=== PATIENT | female | born 1980 | race Caucasian/White ===

== ENCOUNTER 2023-01-08 07:20 | Day surgery (SDC) | payer OTHER ==
[~2023-01-08] VITALS: Ht 177.8 cm; Wt 133.0 kg
[2023-01-08 08:58] VITALS: BP 140/94; PULSE 82; TEMP 98.5
--- NOTE | 2023-01-08 09:03 | NUR ---
0736 PT AMBULATORY TO BAY 4 WITH STEADY GAIT, BREATHING EVEN AND UNLABORED. PT IS ALERT AND ORIENTED, ACCOMPANIED BY HER . CONSENTS REVIEWED AND SIGNED BY PT. IV ESTABLISHED. LR INFUSING VIA GRAVITY AT [facility]. CALL LIGHT IN REACH. WARM BLANKET PROVIDED.
[2023-01-08 11:02] VITALS: BP 129/63; PULSE 90; TEMP 97.6
--- NOTE | 2023-01-08 11:02 | NUR ---
PATIENT RETURNED TO BAY 4 VIA CART, DROWSY BUT ORIENTED X3. DENIES PAIN, NAUSEA AND SHORTNESS OF BREATH. BREATHING REGULAR AND UNLABORED ON ROOM AIR. SKIN WARM AND DRY. HANDOFF COMPLETED IN ROOM BY ROBY AMOR RN AND SCOOBY HERNANDEZ CRNA. GAUZE AND MEDIPORE DRESSING PRESENT TO RIGHT CHEST (CLEAN, DRY AND INTACT). BANDAID INTACT TO RIGHT SIDE OF NECK (CLEAN AND DRY). SEE CHART FOR VITAL SIGNS. CALL LIGHT IN REACH. SPOUSE, CARRIE, PRESENT IN ROOM.
--- NOTE | 2023-01-08 11:09 | NUR ---
MET WITH PATIENT AND SPOUSE IN ROOM TO DISCUSS PROCEDURE.
[2023-01-08 11:15] VITALS: BP 111/72; PULSE 72
[2023-01-08 11:30] VITALS: BP 122/63; PULSE 69
[2023-01-08 11:45] VITALS: BP 137/52; PULSE 84
--- NOTE | 2023-01-08 12:32 | NUR ---
1217: DISCHARGE TEACHING COMPLETED WITH PRINTED EDUCATION AND INSTRUCTIONS SENT HOME WITH PATIENT. PORT A CATH INFORMATION PACKET AND CARDS SENT HOME WITH PATIENT AND SPOUSE. PATIENT AND CARRIE VERBALIZED UNDERSTANDING OF TEACHING. 1219: PATIENT DENIES PAIN, NAUSEA AND SHORTNESS OF BREATH. TOLERATING FOOD AND DRINK. LEFT HAND IV REMOVED. GAUZE AND COBAN PLACED OVER SITE. 1224: PATIENT AMBULATED TO RESTROOM WITH STEADY GAIT AND VOIDED. 1232: PATIENT DISCHARGED HOME WITH [facility].
== END 2023-01-08 12:32 | disposition home or self-care (01) ==
LOC: SDCO 07:20
DX: C50.412 Malignant neoplasm of upper-outer quadrant of left female breast (principal); Z80.3 Family history of malignant neoplasm of breast; Z87.891 Personal history of nicotine dependence
CPT/HCPCS: C1788; J0690; J1644; J2250; J2405; J2704; J7120

== ENCOUNTER → 2023-01-09 | Outpatient (CLI) | payer OTHER | LOC: COL.VAS 08:31 | DX: C50.412 Malignant neoplasm of upper-outer quadrant of left female breast (principal) ==

== ENCOUNTER → 2023-12-06 | Outpatient (CLI) | payer OTHER ==
[~2023-12-06] MED LIST: CLARITIN 1010 MG/TAB PO; NORCO 325 MG-51 TAB PO; PRIL40 PO
== END ==
LOC: COL.VAS 09:18
DX: C50.412 Malignant neoplasm of upper-outer quadrant of left female breast (principal); I51.7 Cardiomegaly